=== PATIENT | male | born 1970 | race Asian ===

== ENCOUNTER 2019-02-14 06:11 | Day surgery (SDC) | payer OTHER ==
[2019-02-14] MEDS ORDERED: FENTAnyl 50 MCG/ML VIAL (09:09)
[2019-02-14] MEDS ORDERED: MIDAZOLAM 1 MG/ML 2 ML INJ ×2 (09:09)
== END 2019-02-14 12:37 | disposition home or self-care (01) ==
LOC: GIL 06:11
DX: K44.9 Diaphragmatic hernia without obstruction or gangrene (principal); K21.9 Gastro-esophageal reflux disease without esophagitis; K29.60 Other gastritis without bleeding
CPT/HCPCS: 43239; 88305